=== PATIENT | male | born 1970 | race Caucasian/White ===

== ENCOUNTER → 2022-02-06 09:14 | Outpatient (CLI) | payer OTHER, SELFPAY ==
[2022-02-06 10:41] LABS: COVID19 -Nasal RAPID Negative (Negative)
== END ==
PROVIDERS: PCP Family Medicine; Visit Provider Family Medicine Sleep Medicine
DX: Z20.822 Contact with and (suspected) exposure to COVID-19 (principal)
CPT/HCPCS: 87635; C9803

== ENCOUNTER 2022-02-07 13:42 | Day surgery (SDC) | payer OTHER, SELFPAY ==
[2022-02-07] VITALS (7 sets, daily range): BP systolic 111–143; BP diastolic 70–97; PULSE 78–87; RESP 12–18; TEMP 36.2–36.4; O2SAT 92–96; BMI 27.8
--- NOTE | 2022-02-07 | PATH_ITS ---
[facility] Accession Number: [id number] . 01 Material submitted: . colon - DESCENDING COLON POLYP 6MM . 02 Diagnosis: Descending Colon, Polyp 6 mm, Biopsy: Hyperplastic polyp. [facility] 02/12/2022 1603 Local . 02 Electronically signed: . Enedina Glass MD, Pathologist NPI- [id number] . 01 Gross description: . DESCENDING COLON POLYP 6MM: Received in formalin are 2 fragment(s) of simmons, soft tissue measuring 0.3 x 0.3 x 0.2 cm to 0.2 x 0.1 x 0.1 cm submitted entirely in 1 cassette(s) /[facility] 02/10/2022 0925 Local . 02 Pathologist provided ICD-10: K63.5 . 02 CPT . 213978 Specimen Comment: A courtesy copy of this report has been sent to [phone] Performed at: 01 [facility] [address], [place], [place] [id number] MD Hua Buck MD Phone: [phone] Performed at: 02 [facility] [address] [place], [place] [id number] MD Enedina Glass MD Phone: [phone]
--- NOTE | 2022-02-07 11:41 | P.HP_ITS ---
History of Present Illness History of Present Illness Date Patient Seen: 02/07/22 Chief complaint: SCREENING COLONOSCOPY Narrative: 51 Years Old Male seen today for consideration of a screening colonoscopy. There have been no lower GI symptoms suggesting disease such as change in bowel habits, bleeding, abdominal pain or anemia. Maternal uncle had colon cancer. Overall health issues have been stable, including no major cardiac events for at least 6 weeks. Past Medical History: Anxiety: TENDINITIS: Past Surgical History: None Family History: Father: CABG x 5 age 67 Mother: Stent places age 67 Siblings: Hypertension Maternal uncle: colon cancer Social History: Marital Status: Children: 2 Occupation: [employer] Household Members: 3 Education: High School 3-4 drinks per week. Patient History Medical History (Updated 02/07/22 @ 13:58 by Susannah Hinton RN) Anxiety Meds Home Medications and Allergies Home Medications Medication Instructions Recorded Confirmed Type buspirone 15 mg tablet 15 mg PO DAILY 02/07/22 02/07/22 History hydroxyzine HCl 50 mg tablet 50 mg PO DAILY 02/07/22 02/07/22 History Allergies Allergy/AdvReac Type Severity Reaction Status Date / Time No Known Drug Allergies Allergy Verified 02/07/22 13:57 Review of Systems Review of Systems Narrative: All remaining ROS were reviewed and negative except as addressed. Exam Narrative Exam Narrative: GENERAL: Alert and oriented, appearing stated age and in no acute distress. HEENT: Head normocephalic/atraumatic. Extraocular movements intact. LUNGS: Clear to ausculation bilaterally, no wheezes, rhonchi or rales. CV: Normal S1 and S2 with regular rate and rhythm, no audible murmurs, rubs or gallops. ABDOMEN: Soft, non-tender, non-distended, no organomegaly. Positive bowel sounds. EXTREMITIES: No clubbing, cyanosis, or edema. NEURO: Cranial nerves II through XII grossly intact, no focal deficits. PSYCH: Alert and oriented x 3. SKIN: No concerning lesions. Assessment & Plan Assessment & Plan narrative: 1. Family history of colon cancer 2. Screening for colon cancer Plan for colonoscopy. The nature and character of the procedure as well as anticipated results were discussed. The possibility of not completing the procedure was also discussed. Possible complications including aspiration pneumonia, bleeding, perforation and reaction to medications either for sedation or preparation and missed lesions were discussed. Questions were answered and proceeding to the colonoscopy was elected. Informed consent signed. I sincerely appreciate the referral allowing me to participate in this patient's care. Please contact me with any questions or concerns.
--- NOTE | 2022-02-07 11:43 | PM.OP.COLON ---
Operative Date/Time/Diagnoses Date of procedure: 02/07/22 Procedure Notes SCOAP/Timeout: 2:21 p.m. Procedure in detail: ENDOSCOPIST: Stacey Larson MD Sedation RN: Kalyani Capone RN Sedation start time: 2:22 p.m. Sedation end time: 2:50 p.m. PROCEDURE: Colonoscopy with cold biopsy INDICATIONS: 1. Family history of colon cancer 2. Screening for colon cancer MEDICATION: Levsin 0.125 mg sublingual, incremental doses of Versed and fentanyl until appropriate level sedation achieved. ASA CLASS: 1 CECAL WITHDRAWAL TIME: 11 minutes COMPLICATIONS: None. EXTENT OF PROCEDURE: Cecum. QUALITY OF PREP: Good with portions of liquid stool. PROCEDURE: Prior to insertion of the colonoscope, a digital rectal examination was accomplished with circumferential palpation of the distal rectal mucosa without significant findings being noted. The high-definition colonoscope was passed into the rectum in the usual fashion and advanced over to the cecum without difficulty. The ileocecal valve, appendiceal stoma, and medial wall all could be inspected and no abnormalities were seen. ASCENDING COLON: As the colonoscope was withdrawn, care was taken to expose and inspect the haustral folds and no abnormalities were seen. HEPATIC FLEXURE: Normal, no polyps, diverticula or other abnormalities. TRANSVERSE COLON: Normal, no polyps, diverticula or other abnormalities. DESCENDING COLON: A 6 mm polyp was seen and removed with cold biopsy forceps otherwise, no diverticula or other abnormalities. SIGMOID COLON: Minor diverticulosis, otherwise, no polyps, or other abnormalities. RECTUM: Normal. J maneuver was produced. There was no significant perianal disease. The J maneuver was broken. The remainder of the rectum was inspected and there was no external hemorrhoid disease. The scope was withdrawn. IMPRESSION: 1. Descending polyp x1, 6 mm, removed with cold biopsy forceps 2. Sigmoid diverticulosis, mild PLAN: 1. Follow-up in clinic status post pathology results. The possibility of a missed lesion including a malignancy has been discussed with the patient previously. Potential alarm symptoms have been discussed and should be reported immediately.
[2022-02-07] MEDS: HYOSCYAMINE 0.125 MG TABLET PO (14:11)
[2022-02-07] MEDS: LACTATED RINGERS 1,000 ML 200 ML IV (14:15)
[2022-02-07] MEDS: fentaNYL 250 MCG/5 ML INJ IV (14:36)
[2022-02-07] MEDS: MIDAZOLAM 5 MG/5 ML VIAL 12 MG IV (14:36)
--- NOTE | 2022-02-07 15:15 | SUR.PHASEII ---
assumed care of pt from Flory Mcdonald RN.
--- NOTE | 2022-02-07 15:27 | SUR.PHASEII ---
Pt given discharge instructions. pt denies any complaints Pt to be discharged with .
== END 2022-02-07 15:57 | disposition home or self-care (01) ==
PROVIDERS: PCP Family Medicine; Referring Provider Student in an Organized Health Care Education/Training Program; Visit Provider Student in an Organized Health Care Education/Training Program
PROC: 0DJD8ZZ Inspection of Lower Intestinal Tract, Via Natural or Artificial Opening Endoscopic (ICD-10-PCS; CPT 45378; principal; 2022-02-07 14:30)
DX: Z12.11 Encounter for screening for malignant neoplasm of colon (principal); K57.30 Diverticulosis of large intestine without perforation or abscess without bleeding; K63.5 Polyp of colon
CPT/HCPCS: 45380; J2250; J3010